=== PATIENT | female | born 1995 | race Two or more races ===

== ENCOUNTER 2017-08-11 23:42 | Emergency (ER) | payer SELFPAY ==
[~2017-08-11] VITALS: Ht 160 cm; Wt 65.2 kg
[~2017-08-11 23:42] MED LIST: AMOXICILLIN500 M1 PO; MOTRIN600 MG PO
[2017-08-12] MEDS ORDERED: DIFLUCAN150 MG PO (01:22)
[2017-08-12] MEDS ORDERED: FLAGYL500 MG PO (01:22)
[2017-08-12 01:35] LABS: SOURCE SWAB
[2017-08-12 01:41] LABS: APPEARANCE CLEAR ((CLEAR)); BILIRUBIN NEGATIVE; BLOOD NEGATIVE; COLOR YELLOW ((YELLOW)); GLUCOSE (STRIP) NEGATIVE; KETONES NEGATIVE; LEUKOCYTES NEGATIVE; NITRITE NEGATIVE; PROTEIN (STRIP) 30; SPECIFIC GRAVITY 1.027 (1.000-1.030); UCUL ADDED? NO
[2017-08-12 02:10] VITALS: BP 112/72
== END 2017-08-12 02:12 | disposition home or self-care (01) ==
LOC: EME 23:42
PROVIDERS: Emergency Medicine
DX: N76.0 Acute vaginitis (principal); B96.89 Other specified bacterial agents as the cause of diseases classified elsewhere; Z11.3 Encounter for screening for infections with a predominantly sexual mode of transmission; F17.200 Nicotine dependence, unspecified, uncomplicated
CPT/HCPCS: 81003; 81025; 87210; 87491; 87591; 99281; 99284

== ENCOUNTER 2017-12-02 11:13 | Emergency (ER) | payer SELFPAY ==
[~2017-12-02] VITALS: Ht 160 cm; Wt 67.0 kg
[~2017-12-02 11:13] MED LIST changes: +DIFLUCAN150 MG PO; +FLAGYL500 MG PO
[2017-12-02 11:20] VITALS: BP 112/75
[2017-12-02 12:45] LABS: APPEARANCE CLEAR ((CLEAR)); BILIRUBIN NEGATIVE; BLOOD NEGATIVE; COLOR YELLOW ((YELLOW)); GLUCOSE (STRIP) NEGATIVE; KETONES NEGATIVE; LEUKOCYTES NEGATIVE; NITRITE NEGATIVE; PROTEIN (STRIP) NEGATIVE; SPECIFIC GRAVITY 1.016 (1.000-1.030); UROBILINOGEN 0.2 MG/DL (0.2-1.0)
== END 2017-12-02 12:58 | disposition home or self-care (01) ==
LOC: EME 11:13
PROVIDERS: Nurse Practitioner Family
DX: Z20.2 Contact with and (suspected) exposure to infections with a predominantly sexual mode of transmission (principal); N89.8 Other specified noninflammatory disorders of vagina
CPT/HCPCS: 81003; 81025; 99281; 99285; J0696